=== PATIENT | female | born 1930 | race Caucasian/White ===

== ENCOUNTER 2018-04-22 13:45 | Inpatient (IN) | payer OTHER ==
[2018-04-22 14:29] LABS: Hematocrit 37 % (35-47); Mean Corpuscular HGB Conc 32 g/dl (31-36); Mean Corpuscular Hemoglobin 29 pg (27-31); Mean Corpuscular Volume 89 fL (80-97); Platelet Count 263 10^3/ul (150-450); Red Blood Count 4.16 10^6/ul (4.00-5.40); Red Cell Distribution Width 17 % (10.5-15); White Blood Count 14.1 10^3/ul (3.5-10.8)
[2018-04-22 14:48] LABS: EGFR Non-African American 36.1 (>60)
[2018-04-22 14:49] LABS: ABS Basophils 0.1 10^3/ul (0-0.2); ABS Eosinophils 0.6 10^3/ul (0-0.6); ABS Lymphocytes 3.3 10^3/ul (1.0-4.8); ABS Monocytes 1.1 10^3/ul (0-0.8); ABS Nucleated RBC 0 10^3/ul; Eosinophil % 4.3 % (0-6); Nucleated Red Blood Cells % 0.1
--- NOTE | 2018-04-22 15:01 | RAD ---
Indication: Bibasilar crackles. Diarrhea and weakness. Comparison: No relevant prior exams available on the [facility] [place] [place] comparison. Technique: Upright AP 1414 hours Report: Elevated lung volumes and mild prominence of the interstitial markings. Asymmetric alveolar consolidation at the LEFT lung base concerning for pneumonia given absence of volume loss to favor atelectasis. Grossly clear pleural spaces. Negative for pneumothorax. Cardiomegaly. Prominent central pulmonary vasculature with peripheral attenuation. Negative for conspicuous free air beneath the diaphragm. RIGHT breast and axillary surgical clips. IMPRESSION: #. Stigmata of chronic obstructive pulmonary disease and probable pulmonary arterial hypertension. #. Alveolar consolidation at the LEFT mid to lower lung zone concerning for pneumonia.
[2018-04-22] MEDS ORDERED: Iodixanol* (CONTRAST) 320 MG/ML 100 ML SDV IV ONE (15:22)
[2018-04-22] MEDS ORDERED: Piperacillin/Tazobac ADVAN(*) 3.375 GM in NS 0.9% 100 ML* 100 ML IVPB ONE (15:59)
--- NOTE | 2018-04-22 16:31 | RAD ---
INDICATION: Left lower quadrant pain COMPARISON: None TECHNIQUE: Axial source images were obtained from the hemidiaphragms to the symphysis pubis following administration of oral and intravenous contrast. 100 mL Visipaque 320 was utilized. Coronal and sagittal reconstructed images were acquired. Lung bases: There is mild bibasilar atelectasis or scarring. Liver: The liver is normal in size. There are no masses. There is prominent intrahepatic and extrahepatic ductal dilatation. The common duct measures 2 cm. Gallbladder: The gallbladder appears absent. Spleen: The spleen is normal in size. There are no masses. Pancreas: There is pancreatic atrophy. There is no pancreatic ductal dilatation or focal pancreatic mass. Adrenal glands: There is no evidence of adrenal mass. Kidneys: There is prompt perfusion and excretion bilaterally. The kidneys have lobular contours and there is renal parenchymal thinning. There are multiple renal cortical cysts. Several hypoechoic lesions are too small to fully characterize. Adenopathy: There is no evidence of adenopathy by size criteria. Fluid collections: There are no free or localized fluid collections. Vessels:There are atherosclerotic changes involving the aorta and iliac vessels. There is no focal aneurysm. The IVC appears normal. GI tract: There is a small hiatal hernia. The stomach and small bowel are otherwise unremarkable. The terminal ileum and ileocecal valve appear normal. The colon is normal in caliber. There are moderate diverticula of the sigmoid colon without CT findings of acute diverticulitis. Pelvic organs: The uterus and adnexa appear normal Bladder: There are no bladder masses. Abdominal and pelvic soft tissues: There is a tiny fat-containing periumbilical hernia. Osseous structures: There is spondylitic change lumbosacral spine. There is a a scoliotic deformity. There is heterotopic bone formation about the right hip.. Other: None IMPRESSION: 1. THERE IS PROMINENT INTRA AND EXTRAHEPATIC DILATATION. THIS MAY BE RELATED TO PRIOR CHOLECYSTECTOMY BUT THE DILATATION IS MORE PROMINENT THAN IS TYPICAL. SUGGEST CORRELATION WITH LIVER ENZYMES. 2. MILD PANCREATIC ATROPHY. NO PANCREATIC MASS. NO PANCREATIC DILATATION. 3. MODERATE DIVERTICULA OF THE SIGMOID COLON WITHOUT CT FINDINGS OF ACUTE DIVERTICULITIS
[2018-04-22] MEDS ORDERED: NS 0.9% 250 ML* 250 ML IV ONE (16:56)
[2018-04-22 17:26] LABS: Urine Appearance Clear; Urine Blood Negative (Negative); Urine Color Yellow; Urine Ketones Negative (Negative); Urine Protein Negative (Negative); Urine Specific Gravity 1.025 (1.010-1.030); Urine Urobilinogen Negative (Negative)
[2018-04-22] MEDS ORDERED: oxyCODONE TAB* 5 MG TAB PO PRN (18:14)
[2018-04-22] MEDS ORDERED: LORazepam TAB(*) 0.5 MG PO PRN (18:14)
[2018-04-22] MEDS ORDERED: Albuterol HFA INHALER* 8 gm MDI INH PRN (18:14)
[2018-04-22] MEDS ORDERED: NS 0.9% 1000 ML* 1,000 ML IV SCH (18:15)
--- NOTE | 2018-04-22 22:03 | HP ---
CC: Dr. Dao * [facility] MEDICINE HISTORY AND PHYSICAL: DATE OF ADMISSION: 04/22/18 PRIMARY CARE PHYSICIAN: Dr. Dao. ATTENDING PHYSICIAN: Dr. Yaron Adams * (dictation provided by Yanira Shabazz NP ). CHIEF COMPLAINT: Abdominal pain. HISTORY OF PRESENT ILLNESS: Ms. Lehman is an 87-year-old female with a past medical history of COPD, combined diastolic and systolic congestive heart failure, chronic pain, fibromyalgia, depression, history of polymyalgia rheumatica, who presents today to the hospital with concern for abdominal cramping. Ms. Lehman recently moved from [place], [place] about 6 weeks ago to live with family here in [place]. She has been doing well since then. She has established care with Dr. Freeman here in the community. Yesterday, she developed some abdominal cramping. This was not too severe. Today, when she woke about 11:30, she had some more severe abdominal cramping and also complained of some pain in her back to her daughter-in- law. She was assisted to the bathroom where she had a large formed bowel movement. She felt a little bit better after that, but then began to have cramping again and was assisted back to the bathroom where she had another large formed bowel movement. The patient was initially feeling better, but then developed this worsening pain that the patient describes as abdominal cramping, but she seems to have told the family that it was back pain. In either case, the patient was hunched over her walker and appeared readily uncomfortable and therefore, EMS was called to bring her to the emergency room. The patient denies any cough, any chest pain. No shortness of breath. No nausea, vomiting. She has a history of chronic congestive heart failure, for which she takes 60 mg of Lasix in the a.m. She is reportedly very well monitored with daily weights per the family and her weight has been stable. In the emergency room, Ms. Lehman had labs, which showed a white blood cell count of 14.1. She had a BUN and creatinine of 41 and 1.38, which is up from her baseline, which is usually normally per the records from her physicians in [place]. Her lactic acid is 2.2. Her troponin is 0.03. Her BNP is 267. Urine shows no evidence of infection. She does have a chest x-ray, which shows concern for a left middle lobe infiltrate. However, on review of previous records from [place], the patient has a history of a known nodule on that left lobe. Because of her abdominal pain, she did have an abdomen and pelvis CT, which shows both intra and extrahepatic dilatation, which she says may be related to prior cholecystectomy and that it should be correlated with the liver enzymes, which are normal. PAST MEDICAL HISTORY: 1. COPD. 2. Combined diastolic and systolic congestive heart failure with last known ejection fraction 40%. 3. Chronic pain with fibromyalgia. 4. Diabetes, diet-controlled. 5. Hyperlipidemia. 6. Hypertension. 7. Myoclonic jerking, on Keppra. 8. Depression. 9. History of polymyalgia rheumatica. MEDICATIONS: 1. Tylenol 500 to 1000 mg p.o. q.6 hours p.r.n. 2. Calcium carbonate with vitamin D 1 each p.o. b.i.d. 3. Advair 230/21 one puff inhaled b.i.d. 4. Furosemide 60 mg p.o. q.a.m. 5. Pantoprazole 20 mg p.o. q.a.m. 6. Travoprost 0.004% 1 drop left eye at bedtime. 7. Valsartan 320 mg p.o. q.p.m. 8. Albuterol inhaler 2 puffs inhaled q.4 hours p.r.n. 9. Carvedilol 3.125 mg p.o. b.i.d. 10. Cholecalciferol 5000 units p.o. q.a.m. 11. Docusate 100 mg p.o. q.a.m. 12. Duloxetine DR 30 mg p.o. b.i.d. 13. Gabapentin 600 mg p.o. b.i.d. 14. Keppra 250 mg p.o. b.i.d. 15. Lorazepam 0.25 mg p.o. q.8 hours p.r.n. 16. Mirtazapine 15 mg p.o. at bedtime. 17. Oxycodone 10 mg p.o. q.6 hours p.r.n. 18. Potassium chloride 10 mEq p.o. b.i.d. 19. Prednisone 10 mg p.o. q.a.m. 20. PreserVision soft gel 1 each p.o. b.i.d. ALLERGIES: To CIPRO, SULFA, EPHEDRINE and SHELLFISH. FAMILY HISTORY: Reviewed and noncontributory. SOCIAL HISTORY: No reported alcohol, tobacco or drug use. The patient lives with family and her daughter, Charo, is the healthcare proxy. REVIEW OF SYSTEMS: A 14-point review of systems was completed with Ms. Lehman and all those not mentioned above were negative. PHYSICAL EXAMINATION GENERAL: Ms. Lehman is lying in the bed. She is in no acute distress. VITAL SIGNS: Temperature 97.6, pulse rate 89, respiratory rate 23, O2 saturation 93% on room air, blood pressure 150/103. LUNGS: Clear to auscultation bilaterally with no accessory muscle use and good aeration. HEART: S1, S2. No murmur, rub or gallop and regular. ABDOMEN: Soft, nontender with bowel sounds positive x4. EXTREMITIES: No cyanosis and positive for 1+ edema. NEURO: She is alert. She is oriented x3. She moves all extremities equally. There is no facial asymmetry or focal weakness. Extraocular movements are intact. SKIN: Intact. DIAGNOSTIC STUDIES/LAB DATA: WBC 14.1, hemoglobin 12.1, hematocrit 37, platelet count 263. Sodium 137, potassium 4.1, chloride 97, serum bicarbonate 32, BUN 41, creatinine 1.38, glucose 250 and lactic acid 2.2. Troponin 0.03. Urine shows no evidence of infection. Chest x-ray is read as follows: "Stigmata of chronic obstructive pulmonary disease and probable pulmonary arterial hypertension, alveolar consolidation at the left mid to lower lung zone concerning for pneumonia." The abdomen and pelvis CT is read as follows: "There is prominent intra and extrahepatic dilatation and this may be related to prior cholecystectomy, but the dilatation is more prominent and is typical, suggests correlation with liver enzymes, mild pancreatic atrophy, no pancreatic mass and no pancreatic dilatation, moderate diverticula of the sigmoid colon without CT findings of acute diverticulitis." EKG shows a sinus rhythm with no evidence of ischemia and a heart rate of about 80. ASSESSMENT AND PLAN: Ms. Lehman is an 87-year-old who recently moved to our area about 6 weeks ago from [place], [place], with a past medical history of chronic obstructive pulmonary disease, diastolic and systolic congestive heart failure, hypertension, who presents today with concern with abdominal cramping, became quite severe this afternoon, has now resolved. Our plans are for observation in the hospital for the followin. Abdominal cramping. The patient is completely pain free now. She denies any diarrhea. She has had no nausea and no vomiting. Her CT scan only shows this abnormality about the liver, but her liver enzymes are normal. She does have a history of cholecystectomy. My plan for tonight is to observe closely for development of any further signs or symptoms and to treat accordingly, but no further workup or treatment is indicated at this time as she is now pain- free. 2. Acute kidney injury. The patient's BUN and creatinine are slightly elevated from baseline. I question whether or not she might have a viral illness causing the cramping and some dehydration. Plan to hydrate overnight at a very low dose 50 mL per hour of normal saline and to reevaluate in the a.m. Plan to hold her valsartan and furosemide. 3. Question pneumonia. On review of the patient's records from her primary care physician in [place], she did have history of a left mid lobe pulmonary nodule and this maybe what we are seeing on the chest x-ray. Regardless, the patient has no cough or fever, which would make this pneumonia less likely. Plan to observe closely overnight. If the patient has any hypoxia or development of any symptoms of pneumonia, we could consider CT scan of the chest for better characterization. In general, the patient and family are not interested in aggressive intervention and did not want that nodule worked up back in June when it was originally found. 4. Hypertension. Plan to hold valsartan, but continue carvedilol given acute kidney injury. 5. Depression. Continue duloxetine and Cymbalta. 6. Tremor. Continue Keppra. 7. Chronic pain. Continue oxycodone. 8. Chronic obstructive pulmonary disease. No evidence of acute exacerbation. Continue prednisone. 9. Code status is DNR. 10. Disposition is to medical floor. TIME SPENT: Approximately 60 minutes were spent on the admission of this patient, more than half time was spent with the patient at the bedside reviewing the events leading up to this hospitalization, performing the physical examination and reviewing the plan of care. YANIRA SHABAZZ, CLINICAL PHARMACY TECHNICIAN [id number]/[facility] #: [id number] MIRTHA
[2018-04-22] MEDS: levETIRAcetam LIQ* 500 MG/5 ML UDC PO SCH (22:13)
[2018-04-22] MEDS: Carvedilol TAB* 3.125 MG PO SCH (22:14)
[2018-04-22] MEDS: Mirtazapine TAB* 15 MG PO SCH (22:14)
[2018-04-22] MEDS: Potassium Chlor TAB* 10 MEQ TAB.ER PO SCH (22:14)
[2018-04-22] MEDS: Heparin VIAL(*) 5000 UNITS/ML VIAL (FIVE THOUSAND) SUBCUT SCH (22:14)
[2018-04-22] MEDS: DULoxetine DR CAP* 30 MG CAP.DR PO SCH (22:14)
[2018-04-22] MEDS: Gabapentin CAP(*) 300 MG PO SCH (22:14)
[2018-04-22] MEDS: Multivitamins/Minera Areds(NF) 1 CAP CAP PO SCH (22:15)
[2018-04-23] MEDS: Heparin VIAL(*) 5000 UNITS/ML VIAL (FIVE THOUSAND) SUBCUT SCH ×3 (05:35→21:42)
[2018-04-23 07:01] LABS: Hematocrit 34 % (35-47); Hemoglobin 11.2 g/dl (12.0-16.0); Mean Corpuscular HGB Conc 34 g/dl (31-36); Mean Corpuscular Hemoglobin 30 pg (27-31); Mean Corpuscular Volume 88 fL (80-97); Mean Platelet Volume 8.9 um3 (7.4-10.4); Platelet Count 205 10^3/ul (150-450); Red Blood Count 3.79 10^6/ul (4.00-5.40); Red Cell Distribution Width 17 % (10.5-15); White Blood Count 10.2 10^3/ul (3.5-10.8)
[2018-04-23 07:21] LABS: EGFR Non-African American 66.7 (>60)
[2018-04-23 07:46] LABS: ABS Basophils 0 10^3/ul (0-0.2); ABS Eosinophils 0.6 10^3/ul (0-0.6); ABS Lymphocytes 2.9 10^3/ul (1.0-4.8); ABS Neutrophils 5.7 10^3/ul (1.5-7.7); ABS Nucleated RBC 0 10^3/ul; Eosinophil % 5.5 % (0-6); Lymphocyte % 28.1 % (25-47); Nucleated Red Blood Cells % 0
--- NOTE | 2018-04-23 08:09 | PN ---
Subjective Date of Service: 04/23/18 Interval History: Ms. Lehman reports having a headache today. She initially denies having shortness of breath with transfer to the bedside commode but the primary nurse reminds her that she did become quite winded. She denies chest pain. She denies abdominal pain, nausea, or diarrhea. Objective Active Medications: Albuterol (Ventolin Hfa Inhaler*) 2 puff INH Q4H PRN Carvedilol (Coreg Tab*) 3.125 mg PO BID SERGO Cholecalciferol (Vitamin D Tab*) 5,000 units PO QAM SERGO Docusate Sodium (Colace Cap*) 100 mg PO QAM SERGO Duloxetine HCl (Cymbalta Cap*) 30 mg PO BID SERGO Gabapentin (Neurontin Cap(*)) 600 mg PO BID SERGO Heparin Sodium (Porcine) (Heparin Vial(*)) 5,000 units SUBCUT Q8HR SERGO Levetiracetam (Keppra Liq*) 250 mg PO BID SERGO Lorazepam (Ativan Tab(*)) 0.25 mg PO Q8H PRN Mirtazapine (Remeron Tab*) 15 mg PO BEDTIME SERGO Multivitamins/Minerals (Preservision Areds(Multivitamins/Mineral)(Nf)) 1 cap PO BID SERGO Oxycodone HCl (Roxycodone Tab*) 10 mg PO Q6H PRN Potassium Chloride (Klor Con Er Tab*) 10 meq PO BID SERGO Prednisone (Deltasone Tab*) 10 mg PO QAM SERGO Vital Signs: Temp Pulse Resp BP Pulse Ox 98.8 F 97 20 144/83 97 04/23/18 03:11 04/23/18 03:11 04/23/18 03:46 04/23/18 03:11 04/23/18 03:11 Oxygen Devices in Use Now: Nasal Cannula Appearance: Female lying in bed in NAD Eyes: No Scleral Icterus Ears/Nose/Mouth/Throat: Mucous Membranes Moist Neck: Trachea Midline Respiratory: Symmetrical Chest Expansion and Respiratory Effort, - - Crackles in bases Cardiovascular: NL Sounds; No Murmurs; No JVD, - - +1 lower extremity edema Abdominal: No Hepatosplenomegaly Lymphatic: No Cervical Adenopathy Extremities: - - + 1 lower extremity edema Skin: No Rash or Ulcers Neurological: Alert and Oriented x 3, NL Muscle Strength and Tone Nutrition: Taking PO's Result Diagrams: 04/23/18 06:34 04/23/18 06:34 Assess/Plan/Problems-Billing Assessment: Ms. Lehman is an 87 yo female with a PMH of who was admitted on 04/22/18 with abdominal pain, now resolved but with concern for leukocytosis, mild lactic acidosis, and chest xray with left sided infiltrate (may be chronic). - Patient Problems (1) Abdominal pain Comment: - No abdominal pain since arrival to the hospital. - CT abd/pelvis with intra and extra hepatic dilatation, consistent with hx of cholecystectomy, LFTs normal. (2) Pulmonary infiltrate Comment: - More hypoxic with VARGAS today, question malignancy, chf, or pneumonia. - 10mm nodule found in left middle lobe Jun 2017, patient did not want further workup or monitoring. Plan for CT chest now for further characterization. (3) Chronic heart failure Comment: - Chronic diastolic/systolic CHF, suspect mild acute exacerbation due to fluids received for SRAVAN. - Fluids stopped. Resume lasix. Continue carvedilol, hold losartan in setting of SRAVAN. (4) Acute kidney injury Comment: - Resolved with IV fluids. - Resume lasix but hold losartan. (5) COPD (chronic obstructive pulmonary disease) Comment: - No evidence of exacerbation. - Continue prednisone. (6) Hypertension Comment: - SBP 140-150s. - Continue carvedilol, resume lasix. Hold losartan in setting of SRAVAN. (7) Fibromyalgia Comment: - Continue gabapentin and oxycodone. (8) Depression, major, recurrent, in remission Comment: - With anxiety. - Continue duloxetine, lorazepam. (9) Myoclonic jerking Comment: - Continue keppra. (10) DVT prophylaxis Comment: - Heparin SQ. (11) DNR (do not resuscitate) Comment: Status and Disposition: Convert to inpatient.
[2018-04-23] MEDS ORDERED: Furosemide TAB* 20 MG PO ONE (08:11)
[2018-04-23] MEDS: Cholecalciferol TAB* 1000 UNITS PO SCH (09:40)
[2018-04-23] MEDS: Gabapentin CAP(*) 300 MG PO SCH ×2 (09:41→21:41)
[2018-04-23] MEDS: Docusate CAP* 100 MG PO SCH (09:43)
[2018-04-23] MEDS: DULoxetine DR CAP* 30 MG CAP.DR PO SCH ×2 (09:43→21:42)
[2018-04-23] MEDS: predniSONE TAB* 10 MG PO SCH (09:44)
[2018-04-23] MEDS: levETIRAcetam LIQ* 500 MG/5 ML UDC PO SCH ×2 (09:44→21:41)
[2018-04-23] MEDS: Multivitamins/Minera Areds(NF) 1 CAP CAP PO SCH ×2 (09:44→21:42)
[2018-04-23] MEDS: Carvedilol TAB* 3.125 MG PO SCH ×2 (09:44→21:42)
[2018-04-23] MEDS: Potassium Chlor TAB* 10 MEQ TAB.ER PO SCH ×2 (09:44→21:42)
--- NOTE | 2018-04-23 13:48 | RAD ---
Indication: 10 mm nodule in the left midlung field. CT of the chest performed without IV contrast. Coronal and sagittal reconstructed images were obtained. Inferior thyroid lobes demonstrates enlargement of the thyroid lower gland. No mediastinal or hilar adenopathy is noted. The heart demonstrates enlargement without evidence of pericardial effusion. The trachea and major bronchi appear patent. There is a left pleural effusion. Atelectasis is noted in the lingula as well as in the left lower lobe. Emphysematous changes are noted. There is motion artifact which limits evaluation for small nodules. 3 mm nodule is noted in the periphery of the lingula. Scarring is noted in the right middle lobe along the fissure. The visualized abdominal organs are unremarkable. IMPRESSION: There is atelectasis in the lingula and left lower lobe posterior costophrenic angle. Scarring is noted in the right middle lobe adjacent to the fissure. Emphysematous changes are noted. There are no prior studies demonstrating a 10 mm nodule currently. Correlation with outside studies may be helpful.
[2018-04-23] MEDS: Mometasone/Formoter 200/5 MDI INH SCH (19:51)
[2018-04-23] MEDS: Mirtazapine TAB* 15 MG PO SCH (21:42)
[2018-04-24] MEDS: Heparin VIAL(*) 5000 UNITS/ML VIAL (FIVE THOUSAND) SUBCUT SCH ×3 (06:22→21:32)
[2018-04-24 07:01] LABS: EGFR Non-African American 67.7 (>60)
[2018-04-24 08:05] LABS: Hematocrit 35 % (35-47); Hemoglobin 11.2 g/dl (12.0-16.0); Mean Corpuscular HGB Conc 32 g/dl (31-36); Mean Corpuscular Hemoglobin 29 pg (27-31); Mean Corpuscular Volume 90 fL (80-97); Mean Platelet Volume 10.5 um3 (7.4-10.4); Platelet Count 206 10^3/ul (150-450); Red Blood Count 3.88 10^6/ul (4.00-5.40); Red Cell Distribution Width 17 % (10.5-15); White Blood Count 8.3 10^3/ul (3.5-10.8)
[2018-04-24] MEDS: Mometasone/Formoter 200/5 MDI INH SCH ×2 (08:11→19:25)
--- NOTE | 2018-04-24 08:47 | PN ---
Subjective Date of Service: 04/24/18 Interval History: Ms. Lehamn reports feeling much better today. She denies chest pain, SOB, nausea , or abdominal pain. Objective Active Medications: Albuterol (Ventolin Hfa Inhaler*) 2 puff INH Q4H PRN Carvedilol (Coreg Tab*) 3.125 mg PO BID SERGO Cholecalciferol (Vitamin D Tab*) 5,000 units PO QAM SERGO Docusate Sodium (Colace Cap*) 100 mg PO QAM SERGO Duloxetine HCl (Cymbalta Cap*) 30 mg PO BID SERGO Gabapentin (Neurontin Cap(*)) 600 mg PO BID SERGO Heparin Sodium (Porcine) (Heparin Vial(*)) 5,000 units SUBCUT Q8HR SERGO Levetiracetam (Keppra Liq*) 250 mg PO BID SERGO Lorazepam (Ativan Tab(*)) 0.25 mg PO Q8H PRN Mirtazapine (Remeron Tab*) 15 mg PO BEDTIME SERGO Mometasone Furoate/Formoterol Fumar (Dulera 200/5 Mdi*) 2 puff INH BID SERGO Multivitamins/Minerals (Preservision Areds(Multivitamins/Mineral)(Nf)) 1 cap PO BID SERGO Oxycodone HCl (Roxycodone Tab*) 10 mg PO Q6H PRN Potassium Chloride (Klor Con Er Tab*) 10 meq PO BID SERGO Prednisone (Deltasone Tab*) 10 mg PO QAM [facility] Vital Signs: Temp Pulse Resp BP Pulse Ox 99.1 F 66 18 147/54 96 04/23/18 18:54 04/24/18 08:13 04/24/18 08:13 04/23/18 23:38 04/24/18 08:13 Oxygen Devices in Use Now: Nasal Cannula Appearance: Elderly female lying in bed in NAD Eyes: No Scleral Icterus Ears/Nose/Mouth/Throat: Mucous Membranes Moist Neck: Trachea Midline Respiratory: Symmetrical Chest Expansion and Respiratory Effort, Clear to Auscultation Cardiovascular: NL Sounds; No Murmurs; No JVD, No Edema Abdominal: NL Sounds; No Tenderness; No Distention Extremities: No Edema Skin: No Rash or Ulcers Neurological: Alert and Oriented x 3, NL Muscle Strength and Tone Nutrition: Taking PO's Result Diagrams: 04/24/18 06:25 04/24/18 06:25 Assess/Plan/Problems-Billing Assessment: Ms. Lehman is an 87 yo female with a PMH of who was admitted on 04/22/18 with abdominal pain, now resolved but with concern for leukocytosis, mild lactic acidosis, and chest xray with left sided infiltrate (may be chronic). - Patient Problems (1) Hypoxia Comment: - Now on 2L NC with SpO2 89% on room air at rest. - No infiltrate, no pulmonary edema. - Echo report pending, ? if is chronic issue as no acute issue identified. (2) Abdominal pain Comment: - No abdominal pain since arrival to the hospital. - CT abd/pelvis with intra and extra hepatic dilatation, consistent with hx of cholecystectomy, LFTs normal. (3) Pulmonary infiltrate Comment: - 10mm nodule found in left middle lobe Jun 2017, patient did not want further workup or monitoring. CT did not show nodule, only scarring without infiltrate or significant pleural effusion. (4) Chronic heart failure Comment: - Chronic diastolic/systolic CHF, suspect mild acute exacerbation due to fluids received for SRAVAN. - Fluids stopped. Resume lasix. Continue carvedilol, hold losartan in setting of SRAVAN. (5) Acute kidney injury Comment: - Resolved with IV fluids. - Continue lasix and resume valsartan. (6) COPD (chronic obstructive pulmonary disease) Comment: - No evidence of exacerbation. - Continue prednisone. (7) Hypertension Comment: - SBP 140-150s. - Continue carvedilol and lasix. Resume valsartan. (8) Fibromyalgia Comment: - Continue gabapentin and oxycodone. (9) Depression, major, recurrent, in remission Comment: - With anxiety. - Continue duloxetine, lorazepam. (10) Myoclonic jerking Comment: - Continue keppra. (11) DVT prophylaxis Comment: - Heparin SQ. (12) DNR (do not resuscitate) Comment: Status and Disposition: Inpatient. Anticipate discharge to home when medically stable.
[2018-04-24] MEDS: Gabapentin CAP(*) 300 MG PO SCH ×2 (09:00→20:28)
[2018-04-24] MEDS: Multivitamins/Minera Areds(NF) 1 CAP CAP PO SCH ×2 (09:01→20:28)
[2018-04-24] MEDS: Docusate CAP* 100 MG PO SCH (09:01)
[2018-04-24] MEDS: levETIRAcetam LIQ* 500 MG/5 ML UDC PO SCH ×2 (09:01→20:29)
[2018-04-24] MEDS: Potassium Chlor TAB* 10 MEQ TAB.ER PO SCH ×2 (09:01→20:28)
[2018-04-24] MEDS: Cholecalciferol TAB* 1000 UNITS PO SCH (09:01)
[2018-04-24] MEDS: Carvedilol TAB* 3.125 MG PO SCH ×2 (09:01→20:29)
[2018-04-24] MEDS: DULoxetine DR CAP* 30 MG CAP.DR PO SCH ×2 (09:01→20:29)
[2018-04-24] MEDS: predniSONE TAB* 10 MG PO SCH (09:01)
[2018-04-24 09:24] LABS: ABS Neutrophils 4.7 10^3/ul (1.5-7.7)
[2018-04-24 09:25] LABS: ABS Basophils 0 10^3/ul (0-0.2); ABS Eosinophils 0.6 10^3/ul (0-0.6); ABS Lymphocytes 2.9 10^3/ul (1.0-4.8)
[2018-04-24 09:26] LABS: Monocytes % 7 % (0-7)
[2018-04-24] MEDS ORDERED: Valsartan TAB* 160 MG PO SCH (18:00)
[2018-04-24] MEDS: Mirtazapine TAB* 15 MG PO SCH (20:29)
--- NOTE | 2018-04-24 22:39 | ECHO ---
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 The study is technically limited due to patient body habitus. The study is technically limited due to the patient's history of COPD. Left Ventricle: The left ventricular chamber size is normal. Mild to moderate concentric left ventricular hypertrophy is observed. There is diffuse global hypokinesis of the left ventricle. Left ventricular systolic function is at the lower limits of normal. The estimated ejection fraction is 50-55%. The assessment of diastolic function is non-diagnostic. There is an E to A reversal in the mitral valve flow pattern suggestive of diastolic dysfunction. Left Atrium: The left atrium is mildly dilated. Right Ventricle: The right ventricle wall thickness is moderately increased. The right ventricular cavity size is normal. The right ventricular global systolic function is normal. Right Atrium: The right atrium is slightly dilated. Aortic Valve: The aortic valve structure is not well visualized. The aortic valve leaflets are mildly thickened. There is mild to moderate aortic regurgitation. There is no evidence of aortic stenosis. Mitral Valve: The mitral valve leaflets are mildly thickened. There is a trace of mitral regurgitation. There is no evidence of mitral stenosis. Tricuspid Valve: The tricuspid valve leaflets are normal. There is mild to moderate tricuspid regurgitation. The tricuspid regurgitant jet is wall impinging. There is evidence that pulmonary hypertension may be underestimated. There is no tricuspid stenosis. Pulmonic Valve: The pulmonic valve structure is not well visualized. There is a trace pulmonic regurgitation. There is no pulmonic stenosis. Pericardium: There is no significant pericardial effusion. A pericardial fat pad is visualized. Aorta: There is mild dilatation of the ascending aorta. The aortic arch is not well visualized. There is no dilation of the aortic root. Pulmonary Artery: The main pulmonary artery is not well visualized. Venous: The inferior vena cava appears normal in size. There is a greater than 50% respiratory change in the inferior vena cava dimension. Summary: There was not any prior study for comparison. Conclusions Mild to moderate concentric left ventricular hypertrophy is observed. Left ventricular systolic function is at the lower limits of normal. The estimated ejection fraction is 50-55%. The assessment of diastolic function is non-diagnostic. There is mild to moderate aortic regurgitation. There is no evidence of aortic stenosis. There is a trace of mitral regurgitation. There is mild to moderate tricuspid regurgitation. There is evidence that pulmonary hypertension may be underestimated. There is no significant pericardial effusion. Measurements Name Value Normal Range RVDdMajor (2D) 3 cm (2.2 - 4.4) RVAW (2D) 0.9 cm (0.2 - 0.5) RAd ISD 4CH 5 cm (3.4 - 4.9) RA (A4C)W 3.4 cm (2.9 - 4.6) IVSd (2D) 1.4 cm (0.6 - 1) LVPWd (2D) 1.4 cm (0.6 - 1) LVIDd (2D) 4.2 cm (3.6 - 5.4) LVIDs (2D) 3.1 cm - LV FS (2D) 26 % (25 - 45) Aortic Annulus 2.1 cm (1.4 - 2.6) Ao root diameter (2D) 2.8 cm (2.1 - 3.5) Ascending Ao 3.5 cm (2.1 - 3.4) LA dimension (AP) 2D 3.9 cm (2.3 - 3.8) LAd ISD 4CH 6 cm (2.9 - 5.3) LA ISD 4CH W 3.9 cm (2.5 - 4.5) Name Value Normal Range LA ESV SP 4CH (A/L) 59 ml - LA ESV SP 2CH (A/L) 74 ml - LA ESV BP (A/L) 67 ml - LA ESV SP 4CH (MOD) 56 ml - LA ESV SP 2CH (MOD) 70 ml - LA ESV BP (MOD) 38 ml - Name Value Normal Range MV E-wave Vmax 0.48 m/sec - MV deceleration time 172 msec - MV A-wave Vmax 1.1 m/sec - MV E:A ratio 0.42 ratio - LV septal e' Vmax 0.06 m/sec - LV lateral e' Vmax 0.04 m/sec - LV E:e' septal ratio 8 ratio - LV E:e' lateral ratio 12 ratio - Name Value Normal Range AV Vmax 1.7 m/sec - AV VTI 33.9 cm - AV peak gradient 11 mmHg - AV mean gradient 6 mmHg - LVOT Vmax 1.1 m/sec - LVOT VTI 25.2 cm - LVOT peak gradient 5.1 mmHg - LVOT mean gradient 2.8 mmHg - AR PHT 494 msec - Name Value Normal Range TR Vmax 2.6 m/sec - TR peak gradient 27 mmHg - RAP 3 mmHg - RVSP 30 mmHg - IVC diameter 0.91 cm - Name Value Normal Range PV Vmax 1 m/sec -
[2018-04-25] MEDS: Heparin VIAL(*) 5000 UNITS/ML VIAL (FIVE THOUSAND) SUBCUT SCH (05:55)
[2018-04-25] MEDS: levETIRAcetam LIQ* 500 MG/5 ML UDC PO SCH (07:46)
[2018-04-25] MEDS: Cholecalciferol TAB* 1000 UNITS PO SCH (07:47)
[2018-04-25] MEDS: Gabapentin CAP(*) 300 MG PO SCH (07:47)
[2018-04-25] MEDS: DULoxetine DR CAP* 30 MG CAP.DR PO SCH (07:48)
[2018-04-25] MEDS: predniSONE TAB* 10 MG PO SCH (07:48)
[2018-04-25] MEDS: Carvedilol TAB* 3.125 MG PO SCH (07:48)
[2018-04-25] MEDS: Docusate CAP* 100 MG PO SCH (07:49)
[2018-04-25] MEDS: Potassium Chlor TAB* 10 MEQ TAB.ER PO SCH (07:49)
[2018-04-25] MEDS: Multivitamins/Minera Areds(NF) 1 CAP CAP PO SCH (08:11)
[2018-04-25] MEDS: Mometasone/Formoter 200/5 MDI INH SCH (08:39)
--- NOTE | 2018-04-25 11:22 | PN ---
Subjective Date of Service: 04/25/18 Interval History: Ms. Lehman denies complaint and is eager for discharge to home. Objective Active Medications: Albuterol (Ventolin Hfa Inhaler*) 2 puff INH Q4H PRN Carvedilol (Coreg Tab*) 3.125 mg PO BID SERGO Cholecalciferol (Vitamin D Tab*) 5,000 units PO QAM SERGO Docusate Sodium (Colace Cap*) 100 mg PO QAM SERGO Duloxetine HCl (Cymbalta Cap*) 30 mg PO BID SERGO Gabapentin (Neurontin Cap(*)) 600 mg PO BID SERGO Heparin Sodium (Porcine) (Heparin Vial(*)) 5,000 units SUBCUT Q8HR SERGO Levetiracetam (Keppra Liq*) 250 mg PO BID SERGO Lorazepam (Ativan Tab(*)) 0.25 mg PO Q8H PRN Mirtazapine (Remeron Tab*) 15 mg PO BEDTIME SERGO Mometasone Furoate/Formoterol Fumar (Dulera 200/5 Mdi*) 2 puff INH BID SERGO Multivitamins/Minerals (Preservision Areds(Multivitamins/Mineral)(Nf)) 1 cap PO BID SERGO Oxycodone HCl (Roxycodone Tab*) 10 mg PO Q6H PRN Potassium Chloride (Klor Con Er Tab*) 10 meq PO BID SERGO Prednisone (Deltasone Tab*) 10 mg PO QAM SERGO Valsartan (Diovan Tab*) 320 mg PO QPM [facility] Vital Signs: Temp Pulse Resp BP Pulse Ox 97.3 F 72 20 148/88 91 04/25/18 07:37 04/25/18 08:45 04/25/18 08:45 04/25/18 08:10 04/25/18 10:14 Oxygen Devices in Use Now: Nasal Cannula Appearance: Female sitting up in bed in NAD Eyes: No Scleral Icterus Ears/Nose/Mouth/Throat: Mucous Membranes Moist Neck: Trachea Midline Respiratory: Symmetrical Chest Expansion and Respiratory Effort, Clear to Auscultation Cardiovascular: NL Sounds; No Murmurs; No JVD, No Edema Abdominal: NL Sounds; No Tenderness; No Distention Lymphatic: No Cervical Adenopathy Extremities: No Edema Skin: No Rash or Ulcers Neurological: Alert and Oriented x 3, NL Muscle Strength and Tone Nutrition: Taking PO's Result Diagrams: 04/24/18 06:25 04/24/18 06:25 Assess/Plan/Problems-Billing Assessment: Ms. Lehman is an 87 yo female with a PMH of who was admitted on 04/22/18 with abdominal pain, now resolved but with concern for leukocytosis, mild lactic acidosis, and chest xray with left sided infiltrate (may be chronic). - Patient Problems (1) Hypoxia Comment: - No longer on O2. - No infiltrate, no pulmonary edema. - Echo without significant wall motion or valvular abnormality. (2) Abdominal pain Comment: - No abdominal pain since arrival to the hospital. - CT abd/pelvis with intra and extra hepatic dilatation, consistent with hx of cholecystectomy, LFTs normal. (3) Pulmonary infiltrate Comment: - 10mm nodule found in left middle lobe Jun 2017, patient did not want further workup or monitoring. CT did not show nodule, only scarring without infiltrate or significant pleural effusion. (4) Chronic heart failure Comment: - Chronic diastolic/systolic CHF, suspect mild acute exacerbation due to fluids received for SRAVAN. - Fluids stopped. Resume lasix. Continue carvedilol and losartan. (5) Acute kidney injury Comment: - Resolved with IV fluids. - Continue lasix and resume valsartan. (6) COPD (chronic obstructive pulmonary disease) Comment: - No evidence of exacerbation. - Continue prednisone. (7) Hypertension Comment: - SBP 140-150s. - Continue carvedilol and lasix. Resume valsartan. (8) Fibromyalgia Comment: - Continue gabapentin and oxycodone. (9) Depression, major, recurrent, in remission Comment: - With anxiety. - Continue duloxetine, lorazepam. (10) Myoclonic jerking Comment: - Continue keppra. (11) DVT prophylaxis Comment: - Heparin SQ. (12) DNR (do not resuscitate) Comment: Status and Disposition: Inpatient. Discharge to home.
[2018-04-25 13:17] VITALS: BP 148/63
--- NOTE | 2018-04-25 18:59 | DS ---
CC: Dr. Dao.* HOSPITAL MEDICINE DISCHARGE SUMMARY: DATE OF ADMISSION: 04/22/18 DATE OF DISCHARGE: 04/25/18 ADDENDUM: PRIMARY CARE PHYSICIAN: Dr. Dao. ATTENDING PHYSICIAN: Dr. Toya King * (dictation provided by Yanira Shabazz NP ). PRIMARY DIAGNOSES: 1. Suspected viral illness, now resolved. 2. Acute kidney injury. SECONDARY DIAGNOSES: 1. Chronic obstructive pulmonary disease. 2. Diastolic and systolic congestive heart failure, last ejection fraction of 50% to 55%. 3. Chronic pain with fibromyalgia. 4. Diet-controlled diabetes. 5. Hyperlipidemia. 6. Hypertension. 7. Myoclonic jerking, on Keppra. 8. Depression. 9. History of polymyalgia rheumatica. HISTORY OF PRESENT ILLNESS: Ms. Lehman is an 87-year-old female with a past medical history as mentioned above who presented to the hospital on 04/22/18 with concern for abdominal pain. Please see the dictated H and P from myself for complete details. In brief, the patient stated that over 24 to 48 hours prior to admission, she developed a cramping abdominal pain that came in waves. Prior to admission, she had 2 large formed stools with persistent cramping and therefore came to the emergency room for evaluation. In the emergency room , she had a white blood cell count of 14.1. She had a BUN and creatinine of 41 and 1.38 respectively. Her lactic acid was 2.2. She had no evidence of urinary tract infection. Her chest x- ray showed concern for a left middle lobe infiltrate. However, on review of the records from the patient's primary care physician in [place], [place], the patient had a history of a known nodule on that left lobe. Because of the abdominal pain, she did have an abdomen and pelvic CT, which showed both intra and extrahepatic dilatation, which were consistent with her history of cholecystectomy. Her LFTs were normal. Ms. Lehman had no further abdominal pain since arrival. She has been tolerating oral intake well. On the following day after admission, her acute kidney injury had resolved. Her BUN and creatinine on 04/24/18 were 25 and 0.80 respectively. The second day of admission, she was noting some hypoxia needing 3 liters O2 at rest. She went on for a chest CT, which showed atelectasis in the lingula and left lower lobe posterior costophrenic angle. Scarring is noted in the right middle lobe adjacent to the fissure. No evidence of a nodule or any other abnormality was noted. The following day, Ms. Lehman continued to have some mild hypoxia and therefore, I did check a transthoracic echocardiogram, which showed no significant valvular or wall motion abnormality and actually showed an improvement from her last known baseline ejection fraction of 40% up to 50% to 55%. Ms. Lehman is feeling much better today. She is no longer requiring oxygen. She has no abdominal pain. She is tolerating oral intake and her labs are unremarkable. Her vitals are stable. Ms. Lehman is medically stable for discharge to home. I suspect that her symptoms were attributable to acute viral illness, which has now resolved. DISPOSITION: To home. DIET: Low-salt, consistent carbohydrate. ACTIVITY: As tolerated. FOLLOWUP PLANS: Please follow up with the primary care provider, Dr. Freeman within the next week regarding this acute hospitalization. TIME SPENT: Approximately 60 minutes were spent in the discharge of this patient, more than half the time spent with the patient at bedside reviewing the events leading up to this hospitalization, performing the physical examination and reviewing the plan of care. YANIRA SHABAZZ NP [id number]/CPS #: [id number]/CPS #: [id number] MIRTHA
--- NOTE | 2018-04-25 19:32 | DS ---
CC: Dr. Dao DISCHARGE SUMMARY: ADDENDUM: PRIMARY CARE PHYSICIAN: Dr. Dao. DIOGENES MCKEON NP [id number]/CPS #: [id number] MTDD
--- NOTE | 2018-04-26 14:49 | ED ---
Isidro Garrett Jacob, scribed for Ladarius Rahman MD on 04/22/18 at 1813 . Complex/Multi-Sys Presentation - HPI Summary HPI Summary: Pt is an 87 y/o F w/ c/o an inability to ambulate due to weakness and abdominal pain onsetting today in the morning. Pain is described as constant and rated 8/ 10. She reports back pain and BLE edema but denies dysuria, increased frequency of urination, chest pain, SOB, cough, loose stool, and blood in stool. Pt sleeps on 3 pillows, has a Hx of BLE edema, and is 93% O2 on room air. She notes that she has gotten hit by a car door but denies any other recent trauma. When asked about PMHx, she replied, "basically everything". - History Of Current Complaint Chief Complaint: EDAbdPain Time Seen by Provider: 04/22/18 13:49 Hx Obtained From: Patient Timing: Constant Severity Currently: Severe Associated Signs And Symptoms: Positive: Edema, Abdominal Pain, Back Pain, Other - NEGATIVE: loose stool, blood in stool, increased. Negative: SOB, Cough , Chest Pain, Dysuria - Allergies/Home Medications Allergies/Adverse Reactions: Allergies Allergy/AdvReac Type Severity Reaction Status Date / Time ciprofloxacin Allergy Mild Nausea Verified 04/22/18 14:27 Sulfa (Sulfonamide Allergy Mild Nausea Verified 04/22/18 14:27 Antibiotics) epinephrine Allergy Unknown Verified 04/22/18 14:29 Reaction Details shellfish derived Allergy Unknown Verified 04/22/18 14:29 Reaction Details Home Medications: Home Medications Acetaminophen [Tylenol Extra Strength] 500 - 1,000 mg PO Q6H PRN 04/22/18 [ History Confirmed 04/22/18] Albuterol HFA INHALER* [Ventolin HFA Inhaler*] 2 puff INH Q4H PRN 04/22/18 [ History Confirmed 04/22/18] Calcium Carbonate/Vitamin D3 [Calcium 500 + Vit D Caplet] 1 each PO BID [History Confirmed 04/22/18] Carvedilol TAB* [Coreg TAB*] 3.125 mg PO BID 04/22/18 [History Confirmed ] Cholecalciferol TAB* [Vitamin D TAB*] 5,000 unit PO QAM 04/22/18 [History Confirmed 04/22/18] DULoxetine DR CAP* [Cymbalta CAP*] 30 mg PO BID 04/22/18 [History Confirmed ] Docusate CAP* [Colace Cap*] 100 mg PO QAM 04/22/18 [History Confirmed 04/22/18] Fluticas/Salmet 230/21 HFA(NF) [Advair HFA 23O/21 (NF)] 1 puff INH BID 04/22/18 [History Confirmed 04/22/18] Furosemide TAB* [Lasix TAB*] 60 mg PO QAM 04/22/18 [History Confirmed 04/22/18] Gabapentin CAP(*) [Neurontin 300 CAP(*)] 600 mg PO BID 04/22/18 [History Confirmed 04/22/18] LORazepam TAB(*) [Ativan 0.5 MG TAB (*)] 0.25 mg PO Q8H PRN 04/22/18 [History Confirmed 04/22/18] Mirtazapine TAB* [Remeron TAB*] 15 mg PO BEDTIME 04/22/18 [History Confirmed ] Pantoprazole TAB (NF) [Protonix TAB (NF)] 20 mg PO QAM 04/22/18 [History Confirmed 04/22/18] Potassium Chlor TAB* [Klor Con ER TAB*] 10 meq PO BID 04/22/18 [History Confirmed 04/22/18] Travoprost Z 0.004% OPHTH (NF) [Travatan Z 0.004% OPTH (NF)] 1 drop LEFT EYE BEDTIME 04/22/18 [History Confirmed 04/22/18] Valsartan TAB* [Diovan TAB*] 320 mg PO QPM 04/22/18 [History Confirmed 04/22/18] Vit A/Vit C/Vit E/Zinc/Copper [Preservision Areds Softgel] 1 each PO BID [History Confirmed 04/22/18] levETIRAcetam TAB* [Keppra TAB*] 250 mg PO BID 04/22/18 [History Confirmed 04/22] oxyCODONE TAB* [Roxycodone TAB 5 mg*] 10 mg PO Q6H PRN MDD 3 04/22/18 [History Confirmed 04/22/18] predniSONE TAB* [Deltasone 10 MG TAB*] 10 mg PO QAM 04/22/18 [History Confirmed 04/22/18] PMH/Surg Hx/FS Hx/Imm Hx Endocrine/Hematology History: Denies: Hx Diabetes Cardiovascular History: Reports: Hx Hypertension - Cancer History Cancer Type, 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 Negative: Vomiting, Nausea Positive: other - NEGATIVE: blood in stool, loose stool. Negative: dysuria, frequency - increased frequency Positive: Edema - BLE, Other - POSITIVE: inability to ambulate due to weakness. Negative: Myalgia Negative: Rash Neurological: Other - NEGATIVE: dizziness All Other Systems Reviewed And Are Negative: Yes Physical Exam - Summary Physical Exam Summary: Constitutional: Well-developed, Well-nourished, Alert. (-) Distressed Skin: Warm, Dry HENT: Normocephalic; Atraumatic Eyes: Conjunctiva normal Neck: Musculoskeletal ROM normal neck. (-) JVD, (-) Stridor, (-) Tracheal deviation Cardio: Rhythm regular, rate normal, Heart sounds normal; Intact distal pulses; The pedal pulses are 2+ and symmetric. Radial pulses are 2+ and symmetric. (-) Murmur Pulmonary/Chest wall: Effort normal. (-) Respiratory distress, (-) Wheezes, (-) Rales (+) Bibasal Crackles Abd: Soft, (-), epigastric tenderness, (-) Distension, (-) Guarding, (-) Rebound (+) LLE tenderness Musculoskeletal: (+) trace BLE edema Lymph: (-) Cervical adenopathy Neuro: Alert, Oriented x3 Psych: Mood and affect Normal Vital Signs On Initial Exam: Initial Vitals Temp Pulse Resp BP Pulse Ox 97.6 F 90 26 119/58 96 04/22/18 13:50 04/22/18 13:50 04/22/18 13:50 04/22/18 13:50 04/22/18 13:50 Diagnostics - Vital Signs Vital Signs Temp Pulse Resp BP Pulse Ox 04/22/18 17:00 70 20 04/22/18 16:19 82 17 177/82 93 04/22/18 16:18 81 17 91 04/22/18 15:00 67 22 90 04/22/18 14:17 95 04/22/18 14:07 77 18 87 04/22/18 13:50 97.6 F 90 26 119/58 96 - Laboratory Lab Results: Lab Results 04/22/18 04/22/18 04/22/18 Range/Units 14:17 14:17 14:17 WBC 14.1 H (3.5-10.8) 10^3/ul RBC 4.16 (4.00-5.40) 10^6/ul Hgb 12.0 (12.0-16.0) g/dl Hct 37 (35-47) % MCV 89 (80-97) fL MCH 29 (27-31) pg MCHC 32 (31-36) g/dl RDW 17 H (10.5-15) % Plt Count 263 (150-450) 10^3/ul MPV 9.0 (7.4-10.4) um3 Neut % (Auto) 63.9 (38-83) % Lymph % (Auto) 23.0 L (25-47) % [place] % (Auto) 7.9 H (0-7) % Eos % (Auto) 4.3 (0-6) % Baso % (Auto) 0.9 (0-2) % Absolute Neuts (auto) 9.0 H (1.5-7.7) 10^3/ul Absolute Lymphs (auto) 3.3 (1.0-4.8) 10^3/ul Absolute Monos (auto) 1.1 H (0-0.8) 10^3/ul Absolute Eos (auto) 0.6 (0-0.6) 10^3/ul Absolute Basos (auto) 0.1 (0-0.2) 10^3/ul Absolute Nucleated RBC 0 10^3/ul Nucleated RBC % 0.1 Sodium 137 (135-145) mmol/L Potassium 4.1 (3.5-5.0) mmol/L Chloride 97 L (101-111) mmol/L Carbon Dioxide 32 (22-32) mmol/L Anion Gap 8 (2-11) mmol/L BUN 41 H (6-24) mg/dL Creatinine 1.38 H (0.51-0.95) mg/dL Est GFR ( Amer) 43.7 (>60) Est GFR (Non-Af Amer) 36.1 (>60) BUN/Creatinine Ratio 29.7 H (8-20) Glucose 215 H (70-100) mg/dL Lactic Acid 2.2 H* (0.5-2.0) mmol/L Calcium 10.3 (8.6-10.3) mg/dL Total Bilirubin 0.60 (0.2-1.0) mg/dL AST 11 L (13-39) U/L ALT 11 (7-52) U/L Alkaline Phosphatase 40 (34-104) U/L Troponin I 0.03 (<0.04) ng/mL B-Natriuretic Peptide ( - 100) pg/mL Total Protein 6.6 (6.4-8.9) g/dL Albumin 3.6 (3.2-5.2) g/dL Globulin 3.0 (2-4) g/dL Albumin/Globulin Ratio 1.2 (1-3) Urine Color Urine Appearance Urine pH (5-9) Ur Specific [place] (1.010-1.030) Urine Protein (Negative) Urine Ketones (Negative) Urine Blood (Negative) Urine Nitrate (Negative) Urine Bilirubin (Negative) Urine Urobilinogen (Negative) Ur Leukocyte Esterase (Negative) Urine Glucose (Negative) 04/22/18 04/22/18 04/22/18 Range/Units 14:17 16:50 17:19 WBC (3.5-10.8) 10^3/ul RBC (4.00-5.40) 10^6/ul Hgb (12.0-16.0) g/dl Hct (35-47) % MCV (80-97) fL MCH (27-31) pg MCHC (31-36) g/dl RDW (10.5-15) % Plt Count (150-450) 10^3/ul MPV (7.4-10.4) um3 Neut % (Auto) (38-83) % Lymph % (Auto) (25-47) % [place] % (Auto) (0-7) % Eos % (Auto) (0-6) % Baso % (Auto) (0-2) % Absolute Neuts (auto) (1.5-7.7) 10^3/ul Absolute Lymphs (auto) (1.0-4.8) 10^3/ul Absolute Monos (auto) (0-0.8) 10^3/ul Absolute Eos (auto) (0-0.6) 10^3/ul Absolute Basos (auto) (0-0.2) 10^3/ul Absolute Nucleated RBC 10^3/ul Nucleated RBC % Sodium (135-145) mmol/L Potassium (3.5-5.0) mmol/L Chloride (101-111) mmol/L Carbon Dioxide (22-32) mmol/L Anion Gap (2-11) mmol/L BUN (6-24) mg/dL Creatinine (0.51-0.95) mg/dL Est GFR ( Amer) (>60) Est GFR (Non-Af Amer) (>60) BUN/Creatinine Ratio (8-20) Glucose (70-100) mg/dL Lactic Acid (0.5-2.0) mmol/L Calcium (8.6-10.3) mg/dL Total Bilirubin (0.2-1.0) mg/dL AST (13-39) U/L ALT (7-52) U/L Alkaline Phosphatase (34-104) U/L Troponin I 0.03 (<0.04) ng/mL B-Natriuretic Peptide 267 H ( - 100) pg/mL Total Protein (6.4-8.9) g/dL Albumin (3.2-5.2) g/dL Globulin (2-4) g/dL Albumin/Globulin Ratio (1-3) Urine Color Yellow Urine Appearance Clear Urine pH 6.0 (5-9) Ur Specific [place] 1.025 (1.010-1.030) Urine Protein Negative (Negative) Urine Ketones Negative (Negative) Urine Blood Negative (Negative) Urine Nitrate Negative (Negative) Urine Bilirubin Negative (Negative) Urine Urobilinogen Negative (Negative) Ur Leukocyte Esterase Negative (Negative) Urine Glucose Negative (Negative) Result Diagrams: 04/22/18 14:17 04/22/18 14:17 Lab Statement: Any lab studies that have been ordered have been reviewed, and results considered in the medical decision making process. - Radiology CXR Xray Interpretation: Positive (See Comments) Radiology Interpretation Completed By: Radiologist - Stigmata of COPD and probable pulmonary arterial HTN. Alveolar consolidation at the LEFT mid to lower lung zone concerning for PNA. Report reviewed by ED physician. - CT CT abd/pel CT Interpretation: Positive (See Comments) CT Interpretation Completed By: Radiologist - THERE IS PROMINENT INTRA AND EXTRAHEPATIC DILATATION. THIS MAY BE RELATED TO PRIOR CHOLECYSTECTOMY BUT THE DILATATION IS MORE PROMINENTTHAN IS TYPICAL. SUGGEST CORRELATION WITH LIVER ENZYMES. MILD PANCREATIC ATROPHY. NO PANCREATIC MASS. NO PANCREATIC DILATATION. MODERATE DIVERTICULA OF THE SIGMOID COLON WITHOUT CT FINDINGS OF ACUTE DIVERTICULITIS. THIS REPORT WAS REVIEWED BY ED PHYSICIAN. - EKG 1435 Cardiac Rate: NL - Rate is 82 BPM EKG Interpretation: T-wave flattens. No STEMI. Sinus arrhythmia. Complex Multi-Symp Course/Dx Assessment/Plan: Pt is an 87 y/o F w/ c/o an inability to ambulate due to weakness and abdominal pain onsetting today in the morning. Pain is described as constant and rated 8/10. She reports back pain and BLE edema but denies dysuria, increased frequency of urination, chest pain, SOB, cough, loose stool, and blood in stool. Pt sleeps on 3 pillows, has a Hx of BLE edema, and is 93% O2 on room air. She notes that she has gotten hit by a car door but denies any other recent trauma. When asked about PMHx, she replied, "basically everything" . During ED course, pt received Iodixanol 100 ml IV, Piperacillin 3.375 gm Ns 0.9% 100 ml IVPB. Pt did not receive large volumes of fluid due to Hx of CHF. EKG, CXR, CT abd/pel, UA, and bloodwork were ordered. Lactic acid was 2.2 H, BNP 267 H, and impressions of EKG, CXR and CT abd/pel are above. Consulted w/ Dr. Peacock at 1707. Pt [place] be [place] [facility] with a diagnosis of PNA, sepsis, dehydration. - Diagnoses Provider Diagnoses: PNA (pneumonia), Sepsis, Dehydration - Physician Notifications Discussed Care Of Patient With: Adi Peacock Time Discussed With Above Provider: 17:07 Instructed by Provider To: Other - Discussed pt, decided to admit to [facility] Discharge - Sign-Out/Discharge Documenting (check all that apply): Discharge/Admit/Transfer - Discharge Plan Condition: Fair Disposition: ADMITTED TO [facility] The documentation as recorded by the Isidro daley Jacob accurately reflects the service I personally performed and the decisions made by , Ladarius Rahman MD.
== END 2018-04-25 13:30 | disposition home or self-care (01) | DRG 723 ==
LOC: ED 13:45 → MED 17:28 → OBSVTOIN 04-23 11:30
PROVIDERS: ADMIT Internal Medicine; ATTEND Internal Medicine
DX: B34.9 Viral infection, unspecified (principal); I50.42 Chronic combined systolic (congestive) and diastolic (congestive) heart failure; N17.9 Acute kidney failure, unspecified; J98.11 Atelectasis; E87.2 Acidosis; F33.9 Major depressive disorder, recurrent, unspecified; J44.9 Chronic obstructive pulmonary disease, unspecified; G89.29 Other chronic pain; M79.7 Fibromyalgia; M35.3 Polymyalgia rheumatica; R91.1 Solitary pulmonary nodule; E11.9 Type 2 diabetes mellitus without complications; E78.5 Hyperlipidemia, unspecified; I11.0 Hypertensive heart disease with heart failure; Z88.1 Allergy status to other antibiotic agents; Z88.2 Allergy status to sulfonamides; Z88.8 Allergy status to other drugs, medicaments and biological substances; Z91.013 Allergy to seafood; Z66 Do not resuscitate; Z90.12 Acquired absence of left breast and nipple; Z85.3 Personal history of malignant neoplasm of breast; Z87.891 Personal history of nicotine dependence; R91.8 Other nonspecific abnormal finding of lung field; R09.02 Hypoxemia; F41.9 Anxiety disorder, unspecified; G25.3 Myoclonus; Z90.49 Acquired absence of other specified parts of digestive tract
CPT/HCPCS: 36415; 71045; 71250; 74177; 80048; 80053; 81003; 83605; 83880; 84484; 85025; 93005; 93306; 94640; 99285; A9270-GY; G0378; J1644; J2543; J7512; Q9967